=== PATIENT | female | born 1945 | race Caucasian/White ===

== ENCOUNTER → 2023-09-24 07:06 | Outpatient (REF) | payer MEDICARE, OTHER, SELFPAY | LOC: RAD 07:06 | PROVIDERS: ATTENDING PHYSICIAN Internal Medicine; FAMILY PHYSICIAN Internal Medicine | DX: I65.23 Occlusion and stenosis of bilateral carotid arteries (principal); R06.02 Shortness of breath | CPT/HCPCS: 93880 ==

== ENCOUNTER → 2023-11-26 11:51 | Outpatient (REF) | payer MEDICARE, OTHER, SELFPAY ==
[2023-11-26 12:57] LABS: % Eosinophils 2.6 % (0-6); % Immature Granulocytes 0.4 % (0-0.5); % Lymphocytes 25.9 % (20.5-51.1); % Neutrophils 62.1 % (42.2-75.2); Absolute Basophils 0.1 10^3/uL (0-0.2); Absolute Eosinophils 0.1 10^3/uL (0-0.7); Absolute Lymphocytes 1.3 10^3/uL (1.2-3.4); Absolute Monocytes 0.4 10^3/uL (0.1-0.6); Absolute Neutrophils 3.1 10^3/uL (1.4-6.5); Hematocrit 40.2 % (37.0-47.0); Hemoglobin 13.5 g/dL (12.0-16.0); Mean Corp Hgb Conc. 33.6 g/dL (33.0-37.0); Mean Corpuscular Volume 92.4 fL (81.0-99.0); Nucleated Red Blood Cells % 0 %; Platelet Count 228 10^3/uL (130-400); Red Blood Cell Count 4.35 10^6/uL (4.20-5.40); Red Cell Dist. Width 13.1 % (11.5-14.5)
[2023-11-26 13:46] LABS: ALT (SGPT) 25 U/L (0-35); AST (SGOT) 36 U/L (14-36); Albumin 4.4 g/dl (3.5-5.0); Alkaline Phosphatase 50 U/L (38-126); Blood Urea Nitrogen 20 mg/dl (7-17); Calcium 9.6 mg/dl (8.4-10.2); Carbon Dioxide 27 mmol/L (22-30); Chloride 101 mmol/L (98-107); Glucose 91 mg/dl (70-99); HDL Cholesterol 92 mg/dl; LDL Cholesterol, Calculated 74 mg/dl; Potassium 4.4 mmol/L (3.5-5.1); Sodium 137 mmol/L (135-145); Total Bilirubin 0.7 mg/dl (0.2-1.3); Total Cholesterol 177 mg/dl (50-199); Total Protein 6.5 g/dl (6.3-8.2); Triglyceride 55 mg/dl (10-149); Very Low Density Lipoprotein 11 mg/dl (0-30); eGFR > 60.00
[2023-11-26 14:25] LABS: Vitamin B12 859 pg/ml (239-931)
== END ==
LOC: OLABPV 11:51
PROVIDERS: ATTENDING PHYSICIAN Family Medicine
DX: E78.2 Mixed hyperlipidemia (principal); Z13.1 Encounter for screening for diabetes mellitus; R10.9 Unspecified abdominal pain; R53.83 Other fatigue; Z79.899 Other long term (current) drug therapy
CPT/HCPCS: 36415; 80053; 80061; 82607; 85025

== ENCOUNTER → 2023-11-27 10:57 | Outpatient (REF) | payer MEDICARE, OTHER, SELFPAY ==
[2023-11-27 12:31] LABS: Urine Albumin Negative (Neg - Trace); Urine Bilirubin Negative (Negative); Urine Character Clear (Clear); Urine Color Yellow; Urine Glucose Negative (Negative); Urine Ketone Negative (Negative); Urine Leukocyte 1+ (Negative); Urine Nitrite Positive (Negative); Urine Occult Blood Negative (Negative); Urine Urobilinogen Negative (Neg - 1+); Urine pH 6.5 (5.0-9.0)
[2023-11-27 12:48] LABS: Urine Bacteria Moderate (Negative); Urine White Cell 0-2 /HPF (0-5)
== END ==
LOC: OLABPV 10:57
PROVIDERS: ATTENDING PHYSICIAN Family Medicine
DX: R10.9 Unspecified abdominal pain (principal)
CPT/HCPCS: 81003; 81015; 87077; 87086; 87186

== ENCOUNTER → 2023-12-01 07:12 | Outpatient (REF) | payer MEDICARE, OTHER, SELFPAY | LOC: RAD 07:12 | PROVIDERS: ATTENDING PHYSICIAN Family Medicine | DX: R10.9 Unspecified abdominal pain (principal); M54.50 Low back pain, unspecified | CPT/HCPCS: 72110; 73502 ==

== ENCOUNTER → 2023-12-02 16:51 | Outpatient (REF) | payer MEDICARE, OTHER, SELFPAY ==
[2023-12-02 18:24] LABS: Urine Albumin Negative (Neg - Trace); Urine Bilirubin Negative (Negative); Urine Character Clear (Clear); Urine Color Yellow; Urine Glucose Negative (Negative); Urine Ketone Negative (Negative); Urine Leukocyte Negative (Negative); Urine Nitrite Positive (Negative); Urine Occult Blood Negative (Negative); Urine Specific Gravity 1.015 (<1.030); Urine Urobilinogen Negative (Neg - 1+)
[2023-12-02 18:34] LABS: Urine Bacteria Many (Negative); Urine Red Blood Cell None Seen /HPF (0-2); Urine Squamous Cell 0-2 /LPF (Few); Urine White Cell None Seen /HPF (0-5)
== END ==
LOC: OLABPV 16:51
PROVIDERS: ATTENDING PHYSICIAN Family Medicine
DX: R10.9 Unspecified abdominal pain (principal); M54.50 Low back pain, unspecified
CPT/HCPCS: 81003; 81015; 87086; 87088; 87186

== ENCOUNTER → 2024-06-16 11:56 | Outpatient (REF) | payer MEDICARE, OTHER, SELFPAY ==
[2024-06-16 12:33] LABS: % Basophils 0.7 % (0-2); % Eosinophils 3.2 % (0-6); % Immature Granulocytes 0.2 % (0-0.5); % Lymphocytes 22.5 % (20.5-51.1); % Monocytes 8.3 % (1.7-9.3); % Neutrophils 65.1 % (42.2-75.2); Absolute Eosinophils 0.2 10^3/uL (0-0.7); Absolute Lymphocytes 1.3 10^3/uL (1.2-3.4); Absolute Monocytes 0.5 10^3/uL (0.1-0.6); Absolute Neutrophils 3.7 10^3/uL (1.4-6.5); Hematocrit 41.3 % (37.0-47.0); Mean Corp Hgb Conc. 33.9 g/dL (33.0-37.0); Mean Corpuscular Hgb 31.1 pg (27.0-31.0); Mean Corpuscular Volume 91.8 fL (81.0-99.0); Nucleated Red Blood Cells % 0 %; Platelet Count 241 10^3/uL (130-400); Red Cell Dist. Width 12.9 % (11.5-14.5); White Blood Cell Count 5.7 10^3/uL (4.8-10.8)
[2024-06-16 12:38] LABS: ALT (SGPT) 26 U/L (0-35); AST (SGOT) 37 U/L (14-36); Albumin 4.5 g/dl (3.5-5.0); Alkaline Phosphatase 53 U/L (38-126); Blood Urea Nitrogen 29 mg/dl (7-17); Calcium 9.8 mg/dl (8.4-10.2); Carbon Dioxide 27 mmol/L (22-30); Chloride 104 mmol/L (98-107); Glucose 82 mg/dl (70-99); HDL Cholesterol 84 mg/dl; LDL Cholesterol, Calculated 78 mg/dl; Potassium 4.6 mmol/L (3.5-5.1); Sodium 141 mmol/L (135-145); Total Bilirubin 0.6 mg/dl (0.2-1.3); Total Cholesterol 174 mg/dl (50-199); Total Protein 6.6 g/dl (6.3-8.2); Triglyceride 63 mg/dl (10-149); Very Low Density Lipoprotein 12 mg/dl (0-30); eGFR > 60.00
[2024-06-16 13:08] LABS: TSH Reflex To Free T4 1.23 uIU/ml (0.47-4.68)
== END ==
LOC: OLABPV 11:56
PROVIDERS: ATTENDING PHYSICIAN Family Medicine
DX: R41.3 Other amnesia (principal); E78.2 Mixed hyperlipidemia; Z13.1 Encounter for screening for diabetes mellitus
CPT/HCPCS: 36415; 80053; 80061; 84443; 85025

== ENCOUNTER → 2024-09-18 07:09 | Outpatient (REF) | payer MEDICARE, OTHER, SELFPAY | LOC: WDC 07:09 | PROVIDERS: ATTENDING PHYSICIAN Family Medicine | DX: Z12.31 Encounter for screening mammogram for malignant neoplasm of breast (principal) | CPT/HCPCS: 77063; 77067 ==

== ENCOUNTER → 2025-02-04 06:52 | Outpatient (REF) | payer MEDICARE, OTHER, SELFPAY | LOC: MRI 06:52 | PROVIDERS: ATTENDING PHYSICIAN Internal Medicine Geriatric Medicine | DX: Z76.89 Persons encountering health services in other specified circumstances (principal); I10 Essential (primary) hypertension; F33.0 Major depressive disorder, recurrent, mild; K21.9 Gastro-esophageal reflux disease without esophagitis; G47.00 Insomnia, unspecified; E78.5 Hyperlipidemia, unspecified; E55.9 Vitamin D deficiency, unspecified; Z13.31 Encounter for screening for depression; R41.3 Other amnesia | CPT/HCPCS: 70551 ==

== ENCOUNTER → 2025-02-22 10:42 | Outpatient (REF) | payer MEDICARE, OTHER, SELFPAY ==
[2025-02-22 12:35] LABS: Hematocrit 40.0 % (37.0-47.0); Hemoglobin 13.2 g/dL (12.0-16.0); Mean Corp Hgb Conc. 33.0 g/dL (33.0-37.0); Mean Corpuscular Volume 92.4 fL (81.0-99.0); Nucleated Red Blood Cells % 0 %; Platelet Count 190 10^3/uL (130-400); Red Cell Dist. Width 12.6 % (11.5-14.5)
[2025-02-22 13:06] LABS: Urine Character Cloudy (Clear)
[2025-02-22 13:31] LABS: Vitamin D, 25-OH*** 32.6 ng/mL (30-80)
[2025-02-22 13:44] LABS: TSH 1.29 uIU/ml (0.47-4.68)
[2025-02-22 13:50] LABS: Urine Red Blood Cell None Seen /HPF (0-2); Urine White Cell 50-60 /HPF (0-5)
[2025-02-22 14:12] LABS: ALT (SGPT) 19 U/L (0-35); AST (SGOT) 24 U/L (14-36); Albumin 4.1 g/dl (3.5-5.0); Alkaline Phosphatase 45 U/L (38-126); Blood Urea Nitrogen 22 mg/dl (7-17); Calcium 9.4 mg/dl (8.4-10.2); Carbon Dioxide 31 mmol/L (22-30); Chloride 106 mmol/L (98-107); Glucose 91 mg/dl (70-99); HDL Cholesterol 64 mg/dl; LDL Cholesterol, Calculated 91 mg/dl; Potassium 4.4 mmol/L (3.5-5.1); Sodium 140 mmol/L (135-145); Total Protein 6.2 g/dl (6.3-8.2); Very Low Density Lipoprotein 9 mg/dl (0-30); eGFR > 60.00
[2025-02-22 14:20] LABS: Folate 10.3 ng/ml (2.76-20); Vitamin B12 552 pg/ml (239-931)
[2025-02-24 12:46] LABS: Lyme Antibody Screen, EIA Negative (Negative)
== END ==
LOC: OLABPV 10:42
PROVIDERS: ATTENDING PHYSICIAN Internal Medicine Geriatric Medicine
DX: Z76.89 Persons encountering health services in other specified circumstances (principal); I10 Essential (primary) hypertension; F33.0 Major depressive disorder, recurrent, mild; K21.9 Gastro-esophageal reflux disease without esophagitis; G47.00 Insomnia, unspecified; E78.5 Hyperlipidemia, unspecified; E55.9 Vitamin D deficiency, unspecified; Z13.31 Encounter for screening for depression; R41.3 Other amnesia
CPT/HCPCS: 36415; 80053; 80061; 81003; 81015; 82306; 82607; 82746; 84443; 84681; 85025; 86618

== ENCOUNTER → 2025-07-13 07:06 | Outpatient (REF) | payer MEDICARE, OTHER, SELFPAY | LOC: RAD 07:06 | PROVIDERS: ATTENDING PHYSICIAN Nurse Practitioner Family | DX: M54.50 Low back pain, unspecified (principal) | CPT/HCPCS: 72110 ==

== ENCOUNTER → 2025-07-26 11:30 | Outpatient (REF) | payer MEDICARE, OTHER, SELFPAY ==
[2025-07-26 17:53] LABS: Urine Character Clear (Clear)
[2025-07-26 18:00] LABS: Urine Red Blood Cell 0-2 /HPF (0-2)
== END ==
LOC: OLABPV 11:30
PROVIDERS: ATTENDING PHYSICIAN Internal Medicine Geriatric Medicine
DX: I10 Essential (primary) hypertension (principal); R41.3 Other amnesia; R10.A3 Flank pain, bilateral; F33.0 Major depressive disorder, recurrent, mild; G47.00 Insomnia, unspecified; E78.5 Hyperlipidemia, unspecified; E55.9 Vitamin D deficiency, unspecified; Z13.31 Encounter for screening for depression; K21.9 Gastro-esophageal reflux disease without esophagitis; E74.39 Other disorders of intestinal carbohydrate absorption; Z13.89 Encounter for screening for other disorder
CPT/HCPCS: 81003; 81015; 87077; 87086; 87186

== ENCOUNTER → 2025-07-29 09:05 | Outpatient (REF) | payer MEDICARE, OTHER, SELFPAY | LOC: RAD 09:05 | PROVIDERS: ATTENDING PHYSICIAN Internal Medicine Geriatric Medicine | DX: F33.0 Major depressive disorder, recurrent, mild (principal); G47.00 Insomnia, unspecified; E78.5 Hyperlipidemia, unspecified; E55.9 Vitamin D deficiency, unspecified; Z13.31 Encounter for screening for depression; K21.9 Gastro-esophageal reflux disease without esophagitis; E74.39 Other disorders of intestinal carbohydrate absorption; R41.3 Other amnesia; Z13.89 Encounter for screening for other disorder | CPT/HCPCS: 76770 ==

== ENCOUNTER 2025-08-01 07:06 | Emergency (ER) | payer MEDICARE, OTHER, SELFPAY ==
[2025-08-01 07:10] VITALS: BP 147/69
[2025-08-01 07:52] LABS: Urine Character Clear (Clear)
[2025-08-01 07:59] VITALS: BMI 26.9
--- NOTE | 2025-08-01 08:06 | ED.GENMED ---
History of Present Illness
General
Chief Complaint: Abdominal Pain
Time Seen by Provider: 08/01/25 07:33
History of Present Illness
History of Present Illness:
This is a 64-year-old female with past medical history of CVA, hyperlipidemia, diverticulitis who presents complaining of 1 week of worsening abdominal pain that radiates into her back. Primary care physician recently started her on Keflex for a
UTI and she has been taking this for 2 days without any improvement in her symptoms. She has been unable to sleep or get comfortable. Denies any nausea, vomiting, fevers or chills.
Past History
Past History
ED Past Medical History: HTN and Other
Social History
Tobacco: Non-smoker
Alcohol: Occasional
Drug: None
Personal:
Living: with family
Family History
Family History: Negative Diabetes, Hypertension or CAD
Phy Exam
General Physical Exam
General Presentation: well appearing and no apparent distress
General Skin: warm and dry
General Habitus: normal
General Mental: alert
General Hydration: appears well hydrated
ENT Exam
ENT Exam: EOMI, pharynx normal, neck supple and normocephalic
Eye Exam
Eye Exam: PERRL, cornea clear and conjunctiva normal
Cardiovascular Exam
Cardiovascular Exam: regular rate/rhythm, no edema, no murmur and normal peripheral pulses
Pulmonary Exam
Pulmonary Exam: lungs clear, no respiratory distress, no rales, no crackles, no rhonchi, no stridor, no wheezing and no cough
Gastrointestinal Exam
Gastrointestinal Exam: normal bowel sounds, non tender, soft, no organomegaly, no pulsatile mass and non distended
Palpation: left lower quadrant: Moderate tenderness and right lower quadrant: Mild tenderness
Neurological Exam
Neurological Exam: alert, oriented x3, no motor deficits and speech normal
Musculoskeletal Exam
Musculoskeletal Exam: full ROM and no edema
Skin Exam
Skin Exam: normal color, warm/dry, no rash and no petechia
Psychiatric Exam
Psychiatric Exam: normal mood/affect
Course
Orders/Labs/Results
Orders:
Orders
08/01/25 07:20
Urinalysis Reflex To Culture Urgent
Date Specimen was Collected: 08/01/25
Time Specimen was Collected: 07:15
Urine Microscopic Reflex Cult Urgent
Urine Culture Urgent
RACHEL Source: U
Specimen Description:
Date Specimen was Collected: 08/01/25
Time Specimen was Collected: 07:15
08/01/25 07:50
CT Abd/pelvis W Iv Cont Urgent
Comment:
Reason For Exam: LLQ pain
Morphine Sulfate 2 mg IV NOW STA
08/01/25 08:26
Basic Metabolic Panel Urgent
Complete Blood Count/With Diff Urgent
Abnormal Lab Results
08/01/25 08/01/25
07:20 08:26
WBC 15.2 H 10^3/uL
(4.8-10.8)
Abs Immat Gran (auto) 0.1 H 10^3/uL
(0-0.05)
Absolute Neuts (auto) 13.0 H 10^3/uL
(1.4-6.5)
Absolute Lymphs (auto) 1.1 L 10^3/uL
(1.2-3.4)
Absolute Monos (auto) 1.0 H 10^3/uL
(0.1-0.6)
Neutrophils % 86.0 H %
(42.2-75.2)
Lymphocytes % 6.9 L %
(20.5-51.1)
BUN 22 H mg/dl
(7-17)
Glucose 110 H mg/dl
(70-99)
Urine Ketones 1+ A
(Negative)
Ur Occult Blood Reflex 2+ A
(Negative)
Leukocyte Esterase Rfl 1+ A
(Negative)
Urine RBC 7-10 A /HPF
(0-2)
Urine Bacteria (Reflex) Moderate A
(Negative)
Urine Albumin (Reflex) 2+ A
(Neg - Trace)
08/01/25 08:26
08/01/25 08:26
Vital Signs
Initial and Last Documented VS:
Initial Vital Signs
Temp Pulse Resp BP Pulse Ox
36.4 C 68 16 147/69 94
08/01/25 07:10 08/01/25 07:10 08/01/25 07:10 08/01/25 07:10 08/01/25 07:10
Last Documented Vital Signs
Temp Pulse Resp BP Pulse Ox
36.4 C 68 16 147/69 94
08/01/25 07:10 08/01/25 07:10 08/01/25 07:10 08/01/25 07:10 08/01/25 08:08
MDM/Problems Addressed
Differential Diagnosis Includes:
CBC leukocytosis of 15.2 with left shift, BMP markable. UA was obtained without any UTI as patient was recently started on Keflex for 1 provide her symptoms. UA is negative for any obvious infection. Given the marked tenderness in the left lower
quadrant on exam CT obtained and shows sigmoid colitis versus acute diverticulitis. Discussed findings with patient and given that she is having substantial amount of pain and it has not been improving for several weeks we will treat for acute
pain. Patient has a penicillin allergy listed in her chart but reports that it just does not work and that is why it is listed as an allergy. Has never had an allergic reaction to penicillin. Given this we will treat with a course of Augmentin.
Return precautions discussed. Patient to take Tylenol or Motrin for any pain. All questions answered. Instructed her to stop taking the Keflex that was initially prescribed for UTI.
*Pulse Oximetry
SaO2: 94
Oxygen Mode of Delivery: Room air
Patient hypoxic: no
*Critical Care Note
Total Time (30-74mins, 75-104mins- exclusive of procedures): Not Applicable
ED Attending Note
-
Portions of this chart may have been created with voice recognition software.� Occasional wrong word or��sound alike� substitutions may have occurred due to the inherent limitations of voice recognition software.
Discharge Plan
Departure
Patient Disposition: Home (Routine Discharge)
Date of Disposition: 08/01/25
Time of Disposition: 10:07
Patient with high blood pressure during this ER visit?: No
Discharge Problem:
Diverticulitis, Abdominal pain
Instructions: Diverticulitis (DC)
Prescriptions:
New
amoxicillin-pot clavulanate [Augmentin] 500-125 mg tablet
1 tab PO BID 7 Days Qty: 14 0RF
No Action
losartan-hydrochlorothiazide 1 EACH tablet
1 ea PO DAILY
temazepam 30 MG capsule
30 mg PO HS
pantoprazole 40 MG tablet,delayed release (DR/EC)
40 mg PO DAILY
biotin 1 MG tablet
1 mg PO DAILY
cholecalciferol (vitamin D3) 2,000 UNIT tablet
2,000 unit PO DAILY
vitamin E (dl, acetate) 400 UNITS capsule
400 units PO DAILY
turmeric root extract 500 MG capsule
500 mg PO DAILY
coconut oil 1,000 MG capsule
1,000 mg PO DAILY
cyanocobalamin (vitamin B-12) 100 MCG tablet
1,000 mcg PO DAILY
calcium carbonate [calcium] 500 MG tablet
500 mg PO DAILY
ascorbic acid (vitamin C) [Vitamin C] 500 MG tablet
1,000 mg PO DAILY
vitamin B complex [Vitamin B-100 Complex] 1 EACH tablet
1 tab PO DAILY
magnesium oxide 250 MG tablet
500 mg PO DAILY
docosahexaenoic acid-epa 1 CAP capsule
1 cap PO DAILY
glucosamine RNq-mcj-msjetjisqc 1 EACH tablet
1 ea PO DAILY
L Glutemine
500 mg PO DAILY
sucralfate 1 GRAM tablet
1 g PO ACHS Qty: 30 0RF
metronidazole 500 MG tablet
500 mg PO TID Qty: 30 0RF
levofloxacin 500 MG tablet
500 mg PO DAILY Qty: 10 0RF
L.acidoph,paracasei,B.animalis 1 EACH capsule
1 ea PO DAILY Qty: 20 0RF
Referrals:
Bartolo Leon MD [Family Provider, Internal Medicine]
Activity Restrictions/Additional Instructions:
A course of antibiotics for your diverticulitis as been prescribed. It is important to take the full course of antibiotics even if you begin to feel better. You can take Tylenol or ibuprofen for any pain. Return to the ER if your pain suddenly
worsens or does not improve after the course of antibiotics.
Interventions
Interventions:
*General Assessment Last Done: 08/01/25 07:10
*Neglect/Abuse Screening Last Done: 08/01/25 07:14
*ED COVID-19 Vaccine History Last Done: 08/01/25 07:10
*ED Influenza Vaccine History Last Done: 08/01/25 07:10
[facility] Fall Risk Assessment Tool Last Done: 08/01/25 08:00
*Risk Screen - Suicide (C-SSRS) Last Done: 08/01/25 07:10
*Nursing Disposition Last Done: 08/01/25 10:16
AB-Nxedpd-Ulpagxgbda Assessment Last Done: 08/01/25 10:19
Discharge Date and Time
Discharge Date/Time: 08/01/25 10:19
Print Language: BELARUSIAN
[2025-08-01 08:14] LABS: Urine Squamous Cell 16-20 /LPF (Few); Urine Urothelial Cell 0-2 /LPF (FEW)
[2025-08-01] MEDS: MORPHINE SULFATE 2 MG IV (08:28)
[2025-08-01 08:39] LABS: Hematocrit 41.7 % (37.0-47.0); Hemoglobin 14.3 g/dL (12.0-16.0); Mean Corp Hgb Conc. 34.3 g/dL (33.0-37.0); Mean Corpuscular Volume 90.5 fL (81.0-99.0); Nucleated Red Blood Cells % 0 %; Platelet Count 207 10^3/uL (130-400); Red Cell Dist. Width 12.9 % (11.5-14.5)
[2025-08-01 08:55] LABS: Blood Urea Nitrogen 22 mg/dl (7-17); Calcium 9.9 mg/dl (8.4-10.2); Carbon Dioxide 30 mmol/L (22-30); Chloride 102 mmol/L (98-107); Estimated Creatinine Clearance 56 ml/min; Glucose 110 mg/dl (70-99); Potassium 3.9 mmol/L (3.5-5.1); Sodium 138 mmol/L (135-145); eGFR > 60.00
== END 2025-08-01 10:19 | disposition home or self-care (01) ==
LOC: EMR 07:06
PROVIDERS: Surgery Trauma Surgery; EMERGENCY PHYSICIAN Emergency Medicine; FAMILY PHYSICIAN Internal Medicine Geriatric Medicine
DX: K57.32 Diverticulitis of large intestine without perforation or abscess without bleeding (principal); I10 Essential (primary) hypertension; E78.5 Hyperlipidemia, unspecified; Z86.73 Personal history of transient ischemic attack (TIA), and cerebral infarction without residual deficits
CPT/HCPCS: 99284; 96374; 74177; 80048; 81003; 81015; 85025; 87086; Q9967